=== PATIENT | male | born 1945 | race Caucasian/White ===

== ENCOUNTER 2018-02-06 18:53 | Emergency (ER) | payer OTHER, MEDICARE ==
[~2018-02-06] VITALS: Ht 182.9 cm; Wt 96.6 kg
[~2018-02-06 18:53] MED LIST: ANTIVERT25 MG PO; ASPIRIN325 PO; BLOOD PRESSURE1 EACH MISCELL; COLACE100 MG PO; METAMUCIL1 EAC1 PO; NORCO 5-325 TA1 EACH PO; NORVASC5 MG PO; TAMSULOSIN HCL0.4 MG PO; TYLENOL325 MG PO; ULTRAM 50MG TAB50 MG PO; XARELTO10 MG PO
[2018-02-06 18:58] VITALS: BP 156/95
[2018-02-06] MEDS ORDERED: ACETAMINOPHEN-1 EAC1 PO (19:32)
== END 2018-02-06 19:41 | disposition home or self-care (01) ==
LOC: M.ERS 18:53
DX: S61.211A Laceration without foreign body of left index finger without damage to nail, initial encounter (principal); Z85.46 Personal history of malignant neoplasm of prostate; W26.9XXA Contact with unspecified sharp object(s), initial encounter; Y93.89 Activity, other specified; Y92.89 Other specified places as the place of occurrence of the external cause; Y99.8 Other external cause status

== ENCOUNTER 2018-03-09 07:50 | Observation (INO) | payer OTHER, MEDICARE ==
[~2018-03-09] VITALS: Ht 182.9 cm; Wt 95.8 kg
[~2018-03-09 07:50] MED LIST changes: +ACETAMINOPHEN-1 EAC1 PO
[2018-03-09 07:54] VITALS: BP 191/85
[2018-03-09] MEDS ORDERED: HORMONE BLOCKER (08:01)
[2018-03-09 08:14] LABS: ABSOLUTE BASOPHILS 0.1 thou/uL (0.0-0.2); ABSOLUTE EOSINOPHILS 0.1 thou/uL (0.0-0.7); ABSOLUTE LYMPHOCYTES 2.6 thou/uL (0.8-5.3); ABSOLUTE MONOCYTES 0.5 thou/uL (0.0-1.2); BASOPHILS 0.9 %; EOSINOPHILS 0.7 %; HEMATOCRIT 44.9 % (42.0-52.0); HEMOGLOBIN 15.6 gm/dL (14.0-18.0); LYMPHOCYTES 25.7 %; MCH 32.8 pg (26.0-34.0); MCHC 34.8 g/dL (28.0-37.0); MCV 94.4 fL (80.0-100.0); MONOCYTES 5.1 %; MPV 8.1 fl. (7.2-11.1); NUCLEATED RBCS 0 /100WBC; PLATELET COUNT* 280 thou/uL (150-400); POLYS 67.6 %; RBC 4.76 mil/uL (4.50-6.00); RDW-CV 13.7 % (10.5-14.5); WBC 10.3 thou/uL (4.0-11.0)
[2018-03-09 08:20] LABS: ANION GAP 10 mmol/L (7-16); BUN 22 mg/dL (7-18); CALCIUM 9.5 mg/dL (8.5-10.1); CHLORIDE 104 mmol/L (98-107); CO2 24 mmol/L (21-32); CREATININE 1.4 mg/dL (0.6-1.3); GLUCOSE 152 mg/dL (70-99); POTASSIUM 4.3 mmol/L (3.5-5.1); SODIUM 138 mmol/L (136-145)
[2018-03-09 08:29] LABS: APTT 26.1 Seconds (25.0-31.3)
[2018-03-09 08:31] LABS: ALBUMIN 3.6 g/dL (3.4-5.0); ALKALINE PHOSPHATASE 72 U/L (46-116); NT-PRO BRAIN NAT PEPTIDE 379 pg/mL (<300); SGOT 48 U/L (15-37); SGPT 75 U/L (30-65); TOTAL BILIRUBIN 0.6 mg/dL (<0.1-1.0); TOTAL PROTEIN 7.5 g/dL (6.4-8.2); TROPONIN-I LEVEL <0.06 ng/mL (<0.06)
[2018-03-09 13:34] VITALS: BP 178/88
[2018-03-09 15:50] VITALS: BP 152/79
--- NOTE | 2018-03-09 17:42 | CARDNUC ---
[place] [address] CARDIAC NUCLEAR IMAGING REPORT Name: HARRY ARENAS Room: [address] IN [facility]#: [id number] Admission: 03/09/18 Attend Phys: Rich Cantor Discharge: Date of : 41 Date of Service: 03/09/18 1741 Report #: [id number] THIS REPORT FOR: //name// APPROVED REPORT Study performed: 03/09/2018 11:22:00 Indication: Chest pain, Dyspnea Patient Location: In-Patient Room #: [facility] Stress Tech: Shannan Lynn Stress Nurse: Noemi Daniel RN Ht: 6 ft 0 in Wt: 220 lbs BSA: 2.22 m2 BMI: 29.83 Medical History Medical History: HTN, Chest pain, Dyspnea, Fatigue, Former Smoker, Prostate Cancer, Kidney Cancer, Radical nephrectomy Medications: ASA 325 mg, Amlodipine Allergies: No known drug allergies Cardiac Risk Factors: Age, HTN, Past Smoker, FHX of CAD Previous Cardiac Procedures: None Pretest Chest Pain Characteristics: No chest pain Exercise History: Indeterminate Physical Disabilities: Generalized weakness, Unsteady gait Resting Data Rest SPECT myocardial perfusion imaging was performed in supine position 45 minutes following the intravenous injection of 10.7 mCi of Tc-99m Sestamibi. Time of rest injection: 1300 Date: 03/09/2018 The images were gated to evaluate regional wall motion and calculate left ventricular ejection fraction. Administration Route: IV Administration Site: Left AC Pharmacologic Stress Pharmacologic stress test was performed by injecting Regadenoson 0.4 mg IV push over 10-15 seconds immediately followed by the intravenous injection of 32.2 mCi of Tc-99m Sestamibi. Time of stress injection: 1435 Date: 03/09/2018 Administration Route: IV Administration Site: Left AC Gated Stress SPECT was performed 45 [place] [address] CARDIAC NUCLEAR IMAGING REPORT Name: HARRY ARENAS Room: [address] IN ..#: [id number] Admission: 03/09/18 Attend Phys: Rich Cantor Discharge: Date of : 41 Date of Service: 03/09/18 1741 Report #: [id number] injection. The images were gated to evaluate regional wall motion and calculate left ventricular ejection fraction. Prone imaging was performed. Stress Test Details Stress Test: Pharmacologic stress testing performed using 0.4 mg of regadenoson per 5 mL given IV over 10 seconds. Reason for pharmacologic stress test: physical limitation, Unsteady gait, generalized weakness. 60 mg caffeine given for nausea. HR Max Heart Rate (APMHR): 146 bpm Resting HR: 81 bpm Target HR (85% APMHR): 124 bpm Max HR Achieved: 126 bpm % of APMHR: 86 Recovery HR: 86 bpm BP Resting BP: 132/92 mmHg Recovery BP: 137/99 mmHg ECG Resting ECG: Sinus Rhythm, normal EKG Stress ECG: Sinus Tachycardia ST Change: None Arrhythmia: None Recovery ECG: Sinus Rhythm, normal EKG Recovery ST Change: None Recovery Arrhythmia: None Clinical Reason for Termination: Completed protocol Stress Symptoms: Hot flash, Heartburn, Nausea Exercise duration: 0 min 0 sec Exercise capacity: 1.00 METs The patient tolerated Lexiscan infusion without significant cardiac symptoms. Nurse Comments Patient admitted from E.D. with generalized weakness, chest pain, back pain, shoulder pain, coughing, nausea. Patient unable to walk on treadmill r/t weakness, back pain, weak legs. Patient exhibited nausea and gagging with Lexiscan, IV caffeine administered. Patient improved with IV caffeine. Patient stable when escorted via wheelchair with staff to Nuclear Medicine for images. [place] [address] CARDIAC NUCLEAR IMAGING REPORT Name: HARRY ARENAS Room: [address] IN [facility]#: [id number] Admission: 03/09/18 Attend Phys: Rich Cantor Discharge: Date of : 41 Date of Service: 03/09/18 1741 Report #: [id number] Stress ECG Conclusion The baseline 12-lead EKG shows sinus rhythm with no significant ST or T wave abnormality. EKGs obtained during and post exercise showed sinus rhythm with no significant ST or T wave changes when compared to baseline. There were no stress-induced arrhythmias. Study Quality Study: Good Artifact: No artifact Study Data At rest, the left ventricular ejection fraction was 70%.. Post stress, the left ventricular ejection was 73%.. TID = 1.10. Perfusion Normal left ventricular perfusion. Wall Motion Normal left ventricular wall motion. Nuclear Conclusion ECG Findings: negative for ischemia Clinical Findings: negative for ischemia Nuclear Findings: negative for ischemia Exercise Capacity: not assessed Left Ventricular Function: normal Risk Study: low Myocardial perfusion images show normal LV systolic function with no evidence of ischemia or infarct. Left ventricular systolic function is normal on gated studies. This is a low risk study. <Conclusion> The baseline 12-lead EKG shows sinus rhythm with no significant ST or T wave abnormality. EKGs obtained during and post exercise showed sinus rhythm with no significant ST or T wave changes when compared to baseline. There were no stress-induced arrhythmias. <ELECTRONICALLY SIGNED> By: Chirag Mccall MD, FACC 03/09/181740 40 40 Chirag Mccall MD, FACC /INF
--- NOTE | 2018-03-09 17:52 | EKG ---
[place] [address] ELECTROCARDIOGRAM REPORT Name: BARTOLOMEHARRY GUTIERREZ Room: [place] [address] ADM IN M.R.#: [id number] Admission: 03/09/18 Attend Phys: Brandi Lizama Discharge: Date of : 41 Report #: [id number] THIS REPORT FOR: //name// [facility] ED Test Date: 2018-03-09 Test Time: 08:06:03 Pat Name: HARRY ARENAS Department: Room: [facility] Gender: Station Manager: Una LUX : 1945 Requested By: Jayy Robertson Order Number: [id number] MD: Chirag Mccall Measurements Intervals [place] Rate: 67 P: 59 AK: 157 QRS: -1 QRSD: 105 T: 47 QT: 430 QTc: 454 Interpretive Statements Sinus rhythm Borderline T abnormalities, anterior leads Compared to ECG 02/24/2017 19:44:06 No significant changes Electronically Signed On 03-09-2018 17:52:33 CDT by Chirag Mccall [email or web address] <ELECTRONICALLY SIGNED> By: Chirag Mccall MD, [facility] 03/09/18 1752 08 5 Chirag Mccall MD, [facility] /EPI
--- NOTE | 2018-03-09 17:54 | EKG ---
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 /EPI
[2018-03-09 19:55] VITALS: BP 158/80
[2018-03-10] VITALS (8 sets, daily range): BP systolic 111–179; BP diastolic 55–97
== END 2018-03-10 18:24 | disposition home or self-care (01) ==
LOC: M.ERS 07:50 → M.2W 10:43 → M.TBA-ER 10:43 → M.2W 13:23
PROVIDERS: Emergency Medicine Emergency Medical Services; ADMIT Internal Medicine
DX: M75.41 Impingement syndrome of right shoulder (principal); R07.89 Other chest pain; H26.9 Unspecified cataract; R94.31 Abnormal electrocardiogram [ECG] [EKG]; Z87.891 Personal history of nicotine dependence; Z85.528 Personal history of other malignant neoplasm of kidney; Z85.46 Personal history of malignant neoplasm of prostate; Z79.899 Other long term (current) drug therapy; Z90.5 Acquired absence of kidney; Z23 Encounter for immunization

== ENCOUNTER 2019-03-23 10:11 | Inpatient (IN) | payer MEDICARE ==
[~2019-03-23] VITALS: Ht 182.9 cm; Wt 98.9 kg
[~2019-03-23 10:11] MED LIST changes: +HORMONE BLOCKER
[2019-03-23 10:17] VITALS: BP 187/95
[2019-03-23 10:41] LABS: ABSOLUTE EOSINOPHILS 0.2 thou/uL (0.0-0.7); ABSOLUTE LYMPHOCYTES 2.2 thou/uL (0.8-5.3); ABSOLUTE MONOCYTES 0.5 thou/uL (0.0-1.2); ABSOLUTE NEUTROPHILS 3.7 thou/uL (1.6-8.1); BASOPHILS 0.5 %; EOSINOPHILS 2.3 %; HEMATOCRIT 43.5 % (42.0-52.0); LYMPHOCYTES 33.4 %; MCH 32.5 pg (26.0-34.0); MCHC 34.5 g/dL (28.0-37.0); MCV 94.2 fL (80.0-100.0); NUCLEATED RBCS 0 /100WBC; PLATELET COUNT* 257 thou/uL (150-400); POLYS 55.8 %; RBC 4.62 mil/uL (4.50-6.00); WBC 6.7 thou/uL (4.0-11.0)
[2019-03-23 10:51] LABS: CALCIUM 8.5 mg/dL (8.5-10.1); CREATININE 1.5 mg/dL (0.6-1.3); POTASSIUM 4.1 mmol/L (3.5-5.1)
[2019-03-23 10:56] LABS: URINE BILIRUBIN NEGATIVE (Negative); URINE BLOOD NEGATIVE (Negative); URINE CLARITY CLEAR; URINE COLOR YELLOW; URINE GLUCOSE-RANDOM NEGATIVE (Negative); URINE KETONES NEGATIVE (Negative); URINE LEUKOCYTES-REFLEX NEGATIVE (Negative); URINE NITRITE-REFLEX NEGATIVE (Negative); URINE PROTEIN NEGATIVE (Negative); URINE SPECIFIC GRAVITY <= 1.005 (1.005-1.030); URINE UROBILINOGEN 0.2 E.U./dl (0.2-1.0)
[2019-03-23 11:01] LABS: ALBUMIN 3.6 g/dL (3.4-5.0); TOTAL BILIRUBIN 0.5 mg/dL (<0.1-1.0); TOTAL PROTEIN 7.2 g/dL (6.4-8.2)
[2019-03-23 12:08] LABS: APTT 27.5 Seconds (25.0-31.3)
[2019-03-23 12:27] LABS: PROTIME 10.1 Seconds (9.20-11.50)
--- NOTE | 2019-03-23 16:14 | EKG ---
[place] [address] ELECTROCARDIOGRAM REPORT Name: HARRY ARENAS Room: [place] [address] ADM IN .R.#: [id number] Admission: 03/23/19 Attend Phys: Clara Dumont Discharge: Date of : 41 Report #: [id number] THIS REPORT FOR: //name// 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: : 1945 Requested By: Merrill Jacobo Order Number: [id number] MD: Tip Qureshi Measurements Intervals [place] Rate: 82 P: 60 VA: 143 QRS: 4 QRSD: 118 T: 36 QT: 406 QTc: 475 Interpretive Statements Sinus rhythm Ventricular premature complex Nonspecific intraventricular conduction delay Low voltage, extremity leads Compared to ECG 03/09/2018 10:04:03 Ventricular premature complex(es) now present Intraventricular conduction delay now present Low QRS voltage now present Electronically Signed On 03-23-2019 16:14:22 AUTOMOTIVE BRAKE TECHNICIAN by Tip Qureshi [email or web address] <ELECTRONICALLY SIGNED> By: Tip Qureshi MD, [facility] 03/23/19 1614 1031 1031 Tip Qureshi MD, [facility] /EPI
[2019-03-23 18:00] VITALS: BP 133/73
--- NOTE | 2019-03-23 18:35 | NUR ---
PT ARRIVED TO UNIT AT APPROX 1830 VIA CART. FULL ASSESSMENT CHARTED, PT DENIES ANY PAIN OR DIZZINESS. ORIENTED TO CALL LIGHT AND ROOM.
[2019-03-23 20:00] VITALS: BP 156/80
[2019-03-24] VITALS: BP 141/80
[2019-03-24 04:00] VITALS: BP 161/88
[2019-03-24 04:49] LABS: HEMATOCRIT 41.4 % (42.0-52.0); HEMOGLOBIN 14.3 gm/dL (14.0-18.0); MCH 32.4 pg (26.0-34.0); MCHC 34.6 g/dL (28.0-37.0); MCV 93.7 fL (80.0-100.0); MPV 7.9 fl. (7.2-11.1); RBC 4.42 mil/uL (4.50-6.00); RDW-CV 13.9 % (10.5-14.5); WBC 7.9 thou/uL (4.0-11.0)
[2019-03-24 05:06] LABS: ALBUMIN 3.2 g/dL (3.4-5.0); CALCIUM 8.8 mg/dL (8.5-10.1); CREATININE 1.4 mg/dL (0.6-1.3); POTASSIUM 4.3 mmol/L (3.5-5.1); TOTAL BILIRUBIN 0.6 mg/dL (<0.1-1.0); TOTAL PROTEIN 6.4 g/dL (6.4-8.2)
--- NOTE | 2019-03-24 05:21 | NUR ---
ASSUMED CARE OF PT AFTER REPORT AT 1930. PT A&OX4. VSS. PHYSICAL ASSESSMENT COMPLETED AND CHARTED. PT ON RA. PT TRACING SR/PVC ON TELE. PT UPADLIB TO RESTROOM. PT DENIES ANY PAIN OR DISCOMFORT. PT ABLE TO SLEEP WELL ON BED. CALL LIGHT WITHIN REACH.
[2019-03-24 07:57] VITALS: BP 159/84
--- NOTE | 2019-03-24 10:30 | NUR ---
MET WITH PT TO DISCUSS HOME SITUATION/DC PLANNING. PT LIVES ALONE, STATES IN SEPTEMBER. HE REPORTS HE HAS GOOD SUPPORT THRU FAMILY AND [employer]. HE IS INDEPENDENT AND ACTIVE, USES NO EQUIPMENT AND HASN'T HAD HH. PT PLANS TO RETURN HOME AT DC.
--- NOTE | 2019-03-24 11:22 | NUR ---
VSS, ASSUMED CARE IN THE AM, ASSESSMENT PERFORMED AND CHARTED, FALL PRECAUTIONS IN PLACE AND CALL LIGHT IN REACH, PT IS A&O4 AND UP ADLIB, ON RA AMD IS TRACING SR ON THE MONITOR, PT HAC COMPLETED MRI AND THIS TIME, PT WANTS TO DISCHARGE, WILL FOLLOW WITH PLAN OF CARE,
[2019-03-24 11:30] VITALS: BP 158/73
--- NOTE | 2019-03-24 12:58 | 2DMMODE ---
[place] [address] 2 D/M-MODE ECHOCARDIOGRAM Name: HARRY ARENAS Room: [facility] ADM IN [facility]#: [id number] Admission: 03/23/19 Attend Phys: Maciel Mckenzie Discharge: Date of : 41 Date of Service: 03/24/19 1258 Report #: [id number] THIS REPORT FOR: //name// APPROVED REPORT Study performed: 03/24/2019 10:27:00 EXAM: Comprehensive 2D, Doppler, and color-flow Echocardiogram Patient Location: In-Patient Room #: [facility] Status: routine BSA: 2.21 HR: 64 bpm BP: 159/843 mmHg Rhythm: NSR Other Information Study Quality: Good Indications Hypertension/HDD 2D Dimensions IVSd: 11.16 (7-11mm) LVOT Diam: 20.19 (18-24mm) LVDd: 44.46 mm PWd: 9.14 (7-11mm) Ascending Ao: 34.94 (22-36mm) LVDs: 31.30 (25-40mm) Aortic Root: 37.29 mm Volumes Left Atrial Volume (Systole) LA ESV Index: 26.80 mL/m2 Left Ventricle The left ventricle is normal size. There is normal LV segmental wall motion. There is normal left ventricular wall thickness. Left ventricular systolic function is normal. The left ventricular ejection fraction is within the normal range. LVEF is 55-60%. Grade I - abnormal relaxation pattern. Right Ventricle The right ventricle is normal size. The right ventricular systolic function [place] [address] 2 D/M-MODE ECHOCARDIOGRAM Name: HARRY ARENAS Room: [address] IN [facility].#: [id number] Admission: 03/23/19 Attend Phys: Maciel Mckenzie Discharge: Date of : 41 Date of Service: 03/24/19 1258 Report #: [id number] The left atrium size is normal. The right atrium size is normal. Aortic Valve The aortic valve is normal in structure. No aortic regurgitation is present. There is no aortic valvular stenosis. Mitral Valve The mitral valve is normal in structure. Trace mitral regurgitation. No evidence of mitral valve stenosis. Tricuspid Valve The tricuspid valve is normal in structure. Trace tricuspid regurgitation. estimated pa pressure 30 mm Hg Pulmonic Valve The pulmonary valve is normal in structure. Mild pulmonic regurgitation. Great Vessels The aortic root is normal in size. IVC is normal in size and collapses >50% with inspiration. Pericardium There is no pericardial effusion. <Conclusion> Left ventricular systolic function is normal. The left ventricular ejection fraction is within the normal range. <ELECTRONICALLY SIGNED> By: Tip Qureshi MD, FACC 03/24/19 1258 1258 1258 Tip Qureshi MD, FAC /INF
[2019-03-24 16:00] VITALS: BP 146/76
[2019-03-24 20:00] VITALS: BP 156/77
[2019-03-25] VITALS: BP 143/78
--- NOTE | 2019-03-25 01:28 | NUR ---
PT ALERT ORIENTED UP AD BRINDA IN ROOM.DENIES DIZZYNESS. DENIES PAIN. ON RA. TELEMETRY SHOWS SR.
[2019-03-25 04:00] VITALS: BP 148/72
[2019-03-25 04:57] LABS: HEMATOCRIT 40.8 % (42.0-52.0); MCH 32.1 pg (26.0-34.0); MCHC 34.3 g/dL (28.0-37.0); MCV 93.5 fL (80.0-100.0); MPV 8.2 fl. (7.2-11.1); RBC 4.36 mil/uL (4.50-6.00); RDW-CV 13.7 % (10.5-14.5)
[2019-03-25 05:17] LABS: CALCIUM 8.3 mg/dL (8.5-10.1); CREATININE 1.4 mg/dL (0.6-1.3); MAGNESIUM 1.9 mg/dL (1.8-2.4); POTASSIUM 4.3 mmol/L (3.5-5.1)
[2019-03-25 08:00] VITALS: BP 143/74
[2019-03-25 12:05] VITALS: BP 149/74
--- NOTE | 2019-03-25 14:10 | NUR ---
ORDERS NOTED FOR DC HOME. MET WITH PT AND GAVE AREA RESOURCES FOR COUNSELING. HE STATED HE WOULD CONSIDER ONCE HE GOT HOME. NO OTHER NEEDS ID'D
[2019-03-25] MEDS ORDERED: AMLODIPINE BESY10 MG PO (14:31)
[2019-03-25] MEDS ORDERED: CELEXA10 MG PO (14:32)
[2019-03-25 14:34] VITALS: BP 149/74
--- NOTE | 2019-03-25 15:25 | NUR ---
ASSUMED PT CARE AT 0700, PT A&O X4, VSS, RA, SOCK IRONER TRACING SINUS RHYTHM, FULL ASSESSMENT CHARTED. PT DISCHARGED HOME AT APPROX 1520, EDUCATED ON ALL DISCHARGE INSTRUCTIONS INCLUDING MEDICATIONS AND FOLLOW UP APPOINTMENTS, IV AND SOCK IRONER REMOVED, HOURLY ROUNDING COMPLETED.
== END 2019-03-25 15:20 | disposition home or self-care (01) | DRG 683 ==
LOC: M.ERS 10:11 → M.TBA-ER 12:54 → M.2W 12:54
PROVIDERS: Family Medicine; Internal Medicine; ADMIT Internal Medicine
DX: I12.9 Hypertensive chronic kidney disease with stage 1 through stage 4 chronic kidney disease, or unspecified chronic kidney disease (principal); N17.9 Acute kidney failure, unspecified; I16.0 Hypertensive urgency; E89.0 Postprocedural hypothyroidism; F32.9 Major depressive disorder, single episode, unspecified; N18.3 Chronic kidney disease, stage 3 (moderate); Z90.49 Acquired absence of other specified parts of digestive tract; Z90.5 Acquired absence of kidney; Z85.46 Personal history of malignant neoplasm of prostate; Z82.49 Family history of ischemic heart disease and other diseases of the circulatory system; Z87.891 Personal history of nicotine dependence; Z88.6 Allergy status to analgesic agent; Z28.21 Immunization not carried out because of patient refusal; Z79.899 Other long term (current) drug therapy

== ENCOUNTER → 2019-05-21 | Outpatient (CLI) | payer MEDICARE, OTHER ==
[~2019-05-21] MED LIST changes: +AMLODIPINE BESY10 MG PO; +CELEXA10 MG PO
[2019-05-21 09:58] LABS: CREATININE 1.7 mg/dL (0.6-1.3)
== END ==
LOC: M.LAB 09:23 → M.CT 11:30
PROVIDERS: Registered Nurse
DX: K44.9 Diaphragmatic hernia without obstruction or gangrene (principal); I25.10 Atherosclerotic heart disease of native coronary artery without angina pectoris; J98.4 Other disorders of lung; I70.0 Atherosclerosis of aorta; K57.30 Diverticulosis of large intestine without perforation or abscess without bleeding; K42.9 Umbilical hernia without obstruction or gangrene; M47.814 Spondylosis without myelopathy or radiculopathy, thoracic region; M25.78 Osteophyte, vertebrae; Z90.5 Acquired absence of kidney